=== PATIENT | female | born 1995 | race American Indian/Alaskan Native ===

== ENCOUNTER 2020-02-25 10:19 | Emergency (ER) | payer OTHER ==
[~2020-02-25] VITALS: Ht 160 cm; Wt 104.3 kg
[~2020-02-25 10:19] MED LIST: ACETAMINOPHEN-1 EAC1 PO; ACETAMINOPHEN325 M1 PO; CORTISPORIN EAR10 M1 AU; DEPO-SUBQ104 MG/0.6 SQ; IBUPROFEN600 MG PO; NORCO 7.5-3251 EACH PO; PRILOSEC20 MG PO; PROMETHAZINE HC25 M1 PO; SEPTRA DS TABL1 EACH PO; SUDAFED30 MG PO; TYLENOL325 MG PO; ULTRAM50 MG PO; ZITHROMAX250 MG PO; ZOFRAN ODT4 MG SL; ZOFRAN ODT8 MG PO; ZOFRAN8 MG PO
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
== END 2020-02-25 12:40 | disposition left against medical advice (07) ==
LOC: ED 10:19
DX: Z53.21 Procedure and treatment not carried out due to patient leaving prior to being seen by health care provider (principal)